=== PATIENT | female | born 1955 | race Caucasian/White ===

== ENCOUNTER 2016-10-10 12:46 | Emergency (ER) | payer MEDICARE ==
[~2016-10-10] VITALS: Ht 162.6 cm; Wt 59.0 kg
[~2016-10-10 12:46] MED LIST: CARI350T PO; CHOL20002 PO; DOXY25TA18 PO; HYDR1TAB14 PO; OXYB5TAB7 PO
[2016-10-10] MEDS ORDERED: HYDROmorphone 1 MG/ML, 1ML ONE (13:20)
[2016-10-10] MEDS ORDERED: DIPH,PERTUSS(ACELL),TET VAC/PF 0.5 ML IM-VACC ONE ×2 (13:21→13:30)
[2016-10-10] MEDS ORDERED: L.E.T SOLUTION TP ONE ×2 (13:21→13:30)
[2016-10-10] MEDS ORDERED: ONDANSETRON ODT 4 MG ONE (13:21)
[2016-10-10] MEDS ORDERED: HYDROmorphone 1 MG/ML, 1ML IM ONE (13:30)
[2016-10-10] MEDS ORDERED: ONDANSETRON ODT 4 MG PO ONE (13:30)
[2016-10-10 16:38] VITALS: BP 119/71
== END 2016-10-10 16:54 | disposition home or self-care (01) ==
LOC: ED 15:15
DX: S16.1XXA Strain of muscle, fascia and tendon at neck level, initial encounter (principal); S01.01XA Laceration without foreign body of scalp, initial encounter; S29.012A Strain of muscle and tendon of back wall of thorax, initial encounter; W01.0XXA Fall on same level from slipping, tripping and stumbling without subsequent striking against object, initial encounter; Y93.89 Activity, other specified; Y92.89 Other specified places as the place of occurrence of the external cause; Y99.8 Other external cause status
CPT/HCPCS: 12001; 70450; 72072; 72125; 90471; 90715; 96372; 99284; J1170

== ENCOUNTER → 2016-11-06 | Outpatient (CLI) | payer MEDICARE | END | disposition home or self-care (01) | LOC: CFH 14:14 | PROVIDERS: ATTEND Psychiatry & Neurology Neurology | DX: G35 Multiple sclerosis (principal) | CPT/HCPCS: 70553; 72156 ==

== ENCOUNTER 2019-08-18 14:10 | Observation (INO) | payer MEDICARE ==
[~2019-08-18] VITALS: Ht 162.6 cm; Wt 67.6 kg
[~2019-08-18 14:10] MED LIST changes: +CALC1TAB56 PO; -HYDR1TAB14 PO; +HYDR1TAB15 PO; +OXYB5TAB10 PO; -OXYB5TAB7 PO; +PREN1TAB60 PO
--- NOTE | 2019-08-18 14:36 | NUR ---
PT HAS CO WEAKNESS AND LOSS OF APPETITE. PT STATES SHE HASNT EATEN MUCH SINCE THURSDAY. DENIES N/V. HX OF MS.
[2019-08-18] MEDS ORDERED: SODIUM CHLORIDE FLUSH 10ML SYR IVF ONE (15:00)
[2019-08-18] MEDS ORDERED: SODIUM CHLORIDE 0.9% 1,000ML IVBOLUS ONE ×2 (15:00→16:30)
--- NOTE | 2019-08-18 15:21 | NUR ---
UA STRAIGHT CATH COLLECTED. CLEANSED WITH THERAWORX.
[2019-08-18 15:44] LABS: BASOPHILS # (AUTO) 0.02 x10^3/uL (0-0.1); BASOPHILS % (AUTO) 0 % (0-1); EOSINOPHILS % (AUTO) 0 % (1-7); LYMPHOCYTES # (AUTO) 1.37 x10^3/uL (1-3.4); LYMPHOCYTES % (AUTO) 19 % (22-44); MD NO; MEAN CORPUSCULAR HEMOGLOBIN 30.1 pg (27.0-34.8); MEAN CORPUSCULAR HGB CONC 33.2 g/dL (32.4-35.8); MEAN CORPUSCULAR VOLUME 90.7 fL (80-100); MEAN PLATELET VOLUME 8.7 fL (7.4-10.4); MONOCYTES # (AUTO) 0.59 x10^3/uL (0.2-0.8); MONOCYTES % (AUTO) 8 % (2-9); NEUTROPHILS # (AUTO) 5.29 x10^3/uL (1.8-6.8); NEUTROPHILS % (AUTO) 73 % (42-75); PLATELET COUNT 280 x10^3/uL (130-400); RED BLOOD COUNT 5.05 x10^6/uL (3.82-5.3); RED CELL DISTRIBUTION WIDTH 14.3 % (9.6-15.2)
[2019-08-18 15:52] LABS: MICROSCOPIC AUTO
[2019-08-18 15:56] LABS: ALANINE AMINOTRANSFERASE 18 U/L (12-78); ALBUMIN 3.8 g/dL (3.4-5.0); ANION GAP 14 mmol/L (5-15); CALCIUM 9.2 mg/dL (8.5-10.1); CHLORIDE 112 mmol/L (98-107)
[2019-08-18 16:02] LABS: ALKALINE PHOSPHATASE 84 U/L (45-117); BILIRUBIN,TOTAL 0.4 mg/dL (0.2-1.0); CREATININE 0.63 mg/dL (0.55-1.02); TOTAL PROTEIN 8.2 g/dL (6.4-8.2); TROPONIN I < 0.015 ng/mL (0.000-0.045)
--- NOTE | 2019-08-18 16:15 | NUR ---
PT RESTING, NO NEEDS A THIS TIME. VSS, PLAN FOR ADMIT
[2019-08-18] MEDS ORDERED: POTASSIUM CHLORIDE 20 MEQ PACKET ONE (16:20)
[2019-08-18] MEDS ORDERED: POTASSIUM CHLORIDE 20 MEQ PACKET PO ONE (16:30)
[2019-08-18] MEDS ORDERED: SODIUM CHLORIDE 0.9% 1,000 ML IV ONE (16:30)
[2019-08-18] MEDS ORDERED: ENALAPRILAT 1.25 MG/ML, 2ML IVPush PRN (17:00)
[2019-08-18] MEDS ORDERED: ONDANSETRON ODT 4 MG PO PRN (17:00)
[2019-08-18] MEDS ORDERED: POLYETHYLENE GLYCOL 17 GM PACKET PO PRN (17:00)
[2019-08-18] MEDS ORDERED: BISACODYL 10 MG SUPP PR PRN (17:00)
[2019-08-18] MEDS ORDERED: LABETALOL 5MG/ML, 20ML IVPush PRN (17:00)
[2019-08-18] MEDS ORDERED: DOCUSATE 100 MG CAPSULE PO PRN (17:00)
[2019-08-18] MEDS ORDERED: ACETAMINOPHEN 325 MG TABLET PO PRN (17:00)
[2019-08-18] MEDS ORDERED: ONDANSETRON 2MG/ML, 2ML IVPush PRN (17:00)
[2019-08-18] MEDS ORDERED: POTASSIUM CHLORIDE 20 MEQ TAB.ER.PRT PO ONE (17:30)
[2019-08-18 17:45] VITALS: BP 128/84
[2019-08-18] MEDS: ENOXAPARIN 40 MG/0.4 ML SQ SCH (18:09)
[2019-08-18] MEDS: D5%-0.45NACL+KCL 20MEQ 1,000 ML IV SCH (18:09)
[2019-08-18] MEDS ORDERED: LINA145C PO (18:30)
[2019-08-18 18:52] VITALS: BP 134/75
[2019-08-18 19:46] VITALS: BP 118/69
[2019-08-18] MEDS: OXYBUTYNIN CHLORIDE 5 MG TABLET PO SCH (19:59)
[2019-08-18] MEDS ORDERED: ACETAMINOPHEN 325 MG TABLET PO ONE (20:30)
[2019-08-18] MEDS ORDERED: DIPHENHYDRAMINE 50 MG CAPSULE PO PRN (20:30)
[2019-08-18] MEDS: CARISOPRODOL 350 MG TABLET PO PRN (22:11)
[2019-08-18] MEDS: HYDROcodone/APAP 5/325 TABLET PO PRN (23:59)
[2019-08-19 01:36] VITALS: BP 95/61
[2019-08-19] MEDS: D5%-0.45NACL+KCL 20MEQ 1,000 ML IV SCH (01:50)
[2019-08-19] MEDS: CARISOPRODOL 350 MG TABLET PO PRN ×4 (02:09→22:28)
[2019-08-19 06:26] LABS: BASOPHILS # (AUTO) 0.02 x10^3/uL (0-0.1); BASOPHILS % (AUTO) 0 % (0-1); EOSINOPHILS # (AUTO) 0.04 x10^3/uL (0-0.4); EOSINOPHILS % (AUTO) 1 % (1-7); LYMPHOCYTES # (AUTO) 2.16 x10^3/uL (1-3.4); LYMPHOCYTES % (AUTO) 40 % (22-44); MD NO; MEAN CORPUSCULAR HEMOGLOBIN 30.1 pg (27.0-34.8); MEAN CORPUSCULAR HGB CONC 33.3 g/dL (32.4-35.8); MEAN CORPUSCULAR VOLUME 90.3 fL (80-100); MEAN PLATELET VOLUME 8.8 fL (7.4-10.4); MONOCYTES # (AUTO) 0.67 x10^3/uL (0.2-0.8); MONOCYTES % (AUTO) 12 % (2-9); NEUTROPHILS # (AUTO) 2.58 x10^3/uL (1.8-6.8); NEUTROPHILS % (AUTO) 47 % (42-75); PLATELET COUNT 240 x10^3/uL (130-400); RED BLOOD COUNT 4.06 x10^6/uL (3.82-5.3); RED CELL DISTRIBUTION WIDTH 14.1 % (9.6-15.2)
[2019-08-19 06:29] LABS: HCT (SEDRATE) 36.9 % (34.6-47.8)
[2019-08-19 06:35] LABS: ALANINE AMINOTRANSFERASE 13 U/L (12-78); ALBUMIN 2.9 g/dL (3.4-5.0); ANION GAP 10 mmol/L (5-15); C-REACTIVE PROTEIN, QUANT 0.38 mg/dL (0.02-0.49); CALCIUM 8.5 mg/dL (8.5-10.1); CHLORIDE 113 mmol/L (98-107); CREATININE 0.41 mg/dL (0.55-1.02)
[2019-08-19 06:46] LABS: ALKALINE PHOSPHATASE 62 U/L (45-117); BILIRUBIN,TOTAL 0.4 mg/dL (0.2-1.0)
[2019-08-19] MEDS ORDERED: MAGNESIUM SULFATE PMX 2GM/50ML 50 ML IV ONE (07:30)
[2019-08-19] MEDS ORDERED: POTASSIUM CHLORIDE 20 MEQ TAB.ER.PRT PO SCH (08:00)
[2019-08-19] MEDS ORDERED: POTASSIUM CHLORIDE 20 MEQ TAB.ER.PRT PO ONE (08:00)
[2019-08-19 08:21] VITALS: BP 100/66
[2019-08-19] MEDS: POTASSIUM PHOSPHATE 44 MEQ in SODIUM CHLORIDE 0.9% 500 ML IV ONE ×2 (08:31→09:59)
[2019-08-19] MEDS: OXYBUTYNIN CHLORIDE 5 MG TABLET PO SCH ×2 (08:31→20:13)
[2019-08-19 13:45] VITALS: BP 101/68
[2019-08-19] MEDS: ENOXAPARIN 40 MG/0.4 ML SQ SCH (18:03)
[2019-08-19 20:00] VITALS: BP 109/72
[2019-08-19] MEDS: NEUTRA PHOS K 250 MG TABLET PO SCH (20:13)
[2019-08-19] MEDS: TEMAZEPAM 15 MG CAPSULE PO PRN (20:13)
[2019-08-20 01:52] VITALS: BP 107/70
[2019-08-20] MEDS: CARISOPRODOL 350 MG TABLET PO PRN ×4 (02:42→21:53)
[2019-08-20] MEDS: D5%-0.45NACL+KCL 20MEQ 1,000 ML IV SCH ×2 (02:42→14:47)
[2019-08-20] MEDS: HYDROcodone/APAP 5/325 TABLET PO PRN (04:49)
[2019-08-20 05:44] LABS: ANION GAP 7 mmol/L (5-15); CALCIUM 8.1 mg/dL (8.5-10.1); CHLORIDE 112 mmol/L (98-107)
[2019-08-20 05:45] LABS: CREATININE 0.33 mg/dL (0.55-1.02)
[2019-08-20 07:38] VITALS: BP 103/59
[2019-08-20] MEDS: NEUTRA PHOS K 250 MG TABLET PO SCH ×2 (08:14→19:55)
[2019-08-20] MEDS: OXYBUTYNIN CHLORIDE 5 MG TABLET PO SCH ×2 (08:14→19:55)
[2019-08-20] MEDS: POTASSIUM CHLORIDE 20 MEQ TAB.ER.PRT PO SCH ×2 (08:14→16:57)
[2019-08-20] MEDS ORDERED: MAGNESIUM SULFATE PMX 2GM/50ML 50 ML IV ONE (11:30)
[2019-08-20 14:51] VITALS: BP 120/81
[2019-08-20] MEDS: ENOXAPARIN 40 MG/0.4 ML SQ SCH (16:57)
[2019-08-20 18:28] VITALS: BP 121/78
[2019-08-20] MEDS: TEMAZEPAM 15 MG CAPSULE PO PRN (19:56)
[2019-08-21 00:34] VITALS: BP 93/62
[2019-08-21] MEDS: D5%-0.45NACL+KCL 20MEQ 1,000 ML IV SCH (04:01)
[2019-08-21] MEDS: CARISOPRODOL 350 MG TABLET PO PRN (04:24)
[2019-08-21 04:56] LABS: ANION GAP 7 mmol/L (5-15); CALCIUM 8.5 mg/dL (8.5-10.1); CHLORIDE 111 mmol/L (98-107); CREATININE 0.46 mg/dL (0.55-1.02)
[2019-08-21 06:39] VITALS: BP 126/85
[2019-08-21] MEDS: OXYBUTYNIN CHLORIDE 5 MG TABLET PO SCH ×2 (09:05→17:43)
[2019-08-21] MEDS: NEUTRA PHOS K 250 MG TABLET PO SCH (09:05)
[2019-08-21] MEDS: CARISOPRODOL 350 MG TABLET PO SCH ×3 (09:06→17:42)
[2019-08-21 13:24] VITALS: BP 112/76
== END 2019-08-21 18:03 | disposition home health service (06) ==
LOC: ED 14:59 → INTOOBSV 17:01 → EDIP 17:01 → 3N 17:27 → OBSVTOIN 08-19 15:41 → INTOOBSV 08-19 15:41
PROVIDERS: ADMIT Internal Medicine; ATTEND Internal Medicine
DX: E86.0 Dehydration (principal); R11.2 Nausea with vomiting, unspecified; E83.42 Hypomagnesemia; E87.2 Acidosis; G35 Multiple sclerosis; E87.6 Hypokalemia; K59.00 Constipation, unspecified; R00.0 Tachycardia, unspecified; Z66 Do not resuscitate; Z88.0 Allergy status to penicillin; Z98.1 Arthrodesis status; Z79.899 Other long term (current) drug therapy
CPT/HCPCS: 36415; 71045; 74018; 80048; 80053; 81001; 83605; 83690; 83735; 84100; 84145; 84443; 84484; 85025; 85651; 86140; 93005; 96361; 96365; 96366; 96368; 96372; 96375; 97163; 97167; 99285; G0378; J1650; J2405; J3475; J3480; J7030; J7040; 96360